=== PATIENT | female | born 1995 | race Caucasian/White ===

== ENCOUNTER 2019-07-24 15:53 | Emergency (ER) | payer OTHER, SELFPAY ==
[2019-07-24 16:01] VITALS: BP 137/69; PULSE 110; RESP 13; TEMP 37.4; O2SAT 100
--- NOTE | 2019-07-24 16:14 | ED.GENADULT ---
HPI - General Adult General Chief complaint: Anxiety Stated complaint: anxiety/n/v/d Time Seen by Provider: 07/24/19 15:58 Source: patient Mode of arrival: ambulatory Limitations: no limitations History of Present Illness HPI narrative: Patient is here because she is been having worsening anxiety over the last 12 hours. She is tearful. She states that she thinks she is having worsening anxiety due to COVID19 news coverage. She states that she has not been helpful she is just extremely anxious. In the past she had been prescribed buspirone but has not been taking it because she did not like the way it made her feel. Patient also states that when she starts to feel this way her IBS ramps up and she has reflux as well. Onset (ago): hour(s) Related Data Home Medications Medication Instructions Recorded Confirmed buspirone mg 07/24/19 Allergies Allergy/AdvReac Type Severity Reaction Status Date / Time No Known Allergies Allergy Mild Verified 04/24/18 12:00 Review of Systems Review of Systems: All systems reviewed & are unremarkable except as noted in HPI and below [facility] Social History Social History (Updated 07/24/19 @ 17:05 by Penelope Maya PA-C) Smoking status: Current every day smoker Alcohol intake: never Substance use type: marijuana Other substance usage details: has medical card Living arrangements: with family Occupation/Education: unemployed Exam Const: Nutritional Appearance: thin Limitations: other limitations (hyperventilating) HENMT: Head: normal to inspection Eyes: Conjunctivae: conjunctivae normal Pupils: Equal, round and reactive pupils present EOM: EOMs intact bilaterally Neck: Neck: no lymphadenopathy Resp: Effort & Inspection: normal respiratory effort Auscultation: clear to auscultation bilaterally Cardio: Rate: regular rate Rhythm: regular rhythm GI: GI Palp: Yes Soft to palpation and Yes Tenderness to palpation present (GI) (mild epigastric tenderness) Back/Spine/Pelvis: Back: no CVA tenderness Skin: General skin exam: normal color Rashes: no rashes Neuro: General: patient oriented x3, moves all extremities and no focal motor deficits Extrem: General: normal to inspection Psych: Appearance: well kempt Affect: Anxious affect present Thought content: Yes Normal thought content present Course Course Emergency Course: Patient discusses her anxiety rationally, she understands that she has letter self be consumed by the news. She had been referred in the past to a therapist but stated that she has not been to see them as yet. She tried to call the office once but became very anxious with primary care physician and did not follow with her. Her IBS and reflux get worse. He has her anxiety gets worse. Recommend that she start to take some Pepcid for her reflux. Also recommend that she does follow through with the therapist she calmed very easily as we talked about the situation in the world today. She would like a primary care physician referral. Vital Signs Vital signs: Vital Signs Temperature 37.4 C 07/24/19 16:01 Pulse Rate 110 H 07/24/19 16:01 Respiratory Rate 13 07/24/19 16:01 Blood Pressure 137/69 07/24/19 16:01 Pulse Oximetry 100 07/24/19 16:01 Temperature 37.4 C 07/24/19 16:01 Pulse Rate 110 H 07/24/19 16:01 Respiratory Rate 13 07/24/19 16:01 Blood Pressure 137/69 07/24/19 16:01 Pulse Oximetry 100 07/24/19 16:01 Medical Decision Making Vital Signs Vital Signs: Vital Signs Temperature 37.4 C 07/24/19 16:01 Pulse Rate 110 H 07/24/19 16:01 Respiratory Rate 13 07/24/19 16:01 Blood Pressure 137/69 07/24/19 16:01 Pulse Oximetry 100 07/24/19 16:01 Temperature 37.4 C 07/24/19 16:01 Pulse Rate 110 H 07/24/19 16:01 Respiratory Rate 13 07/24/19 16:01 Blood Pressure 137/69 07/24/19 16:01 Pulse Oximetry 100 07/24/19 16:01 Discharge Plan Discharge Clinical Impression: A
[2019-07-24 16:23] LABS: Basophils Percent Auto 0.4 % (0.2-1.2); Eosinophils Percent Auto 0.4 % (0-4.4); Hematocrit 38.8 % (37.0-47.0); Immature Granulocyte Absolute 0.02 K/mm3 (0.00-0.031); Immature Granulocyte Percent A 0.4 % (0-0.5); Lymphocytes Absolute Auto 1.38 K/mm3 (0.9-3.2); Lymphocytes Percent Auto 25.3 % (18.3-44.2); Mean Corpuscular HGB Conc 33.5 g/dl (32-36); Mean Corpuscular Hemoglobin 27.1 pg (26-34); Mean Corpuscular Volume 80.8 fl (80-100); Mean Platelet Volume 11.8 fl (7.4-10.4); Monocytes Absolute Auto 0.3 K/mm3 (0.1-0.6); Monocytes Percent Auto 4.8 % (2.6-8.5); Neutrophils Absolute Auto 3.8 K/mm3 (1.3-6.7); Neutrophils Percent Auto 68.7 % (45.5-73.1); Platelet Count Result 252 k/mm3 (150-375); Red Cell Distribution Width 13.2 % (11.5-14.5); White Blood Count 5.5 K/mm3 (4.5-10.0)
[2019-07-24 16:26] VITALS: BP 137/68; PULSE 102; RESP 18; O2SAT 98
[2019-07-24] MEDS: LORAZEPAM 0.5 MG TABLET PO (16:26)
[2019-07-24 16:35] LABS: Blood Urea Nitrogen 6 mg/dL (7-17); Calcium 9.8 mg/dL (8.4-10.2); Carbon Dioxide 16 mmol/L (22-30); Chloride 110 mmol/L (98-107); Estimated CRCL calculation 79 ml/min; Estimated Glomerular Filt Rate > 60; Glucose 97 mg/dL (65-105); Potassium 3.6 mmol/L (3.4-5.0); Sodium 140 mmol/L (137-145)
[2019-07-24 16:43] LABS: Add Urine Microscopic? YES; Appearance Urine Clear (Clear); Bilirubin Urine Negative (Negative); Blood Urine Negative (Negative); Color Urine Straw (Yellow); Glucose Urine UA Negative (Negative); Ketones Urine 2+ mg/dL (Negative); Leukocyte Esterase Ur Negative LEU/UL (Negative); Mucus Urine Rare /lpf; Nitrate Urine Negative (Negative); Protein Urine Negative (Negative); RBC Urine 0-2 /hpf (0-2); Specific Grav Ur 1.012 (1.001-1.035); Squamous Epithelial Cell Urine Many /hpf (Few); Urobilinogen Urine Negative mg/dL (<2.0); WBC Urine 0-3 /hpf
[2019-07-24 17:40] VITALS: BP 114/71; PULSE 85; RESP 16; O2SAT 100
[2019-07-24] MEDS: ONDANSETRON HCL ODT 4 MG TABLET PO (17:41)
== END 2019-07-24 17:41 | disposition home or self-care (01) ==
PROVIDERS: Emergency Provider Emergency Medicine
DX: F41.9 Anxiety disorder, unspecified (principal); K21.9 Gastro-esophageal reflux disease without esophagitis
CPT/HCPCS: 36415; 80048; 81001; 81025; 85025; 99284; A9270

== ENCOUNTER 2019-08-02 05:34 | Emergency (ER) | payer OTHER, SELFPAY ==
[2019-08-02 05:37] VITALS: BP 114/93; PULSE 118; RESP 19; TEMP 37.2; O2SAT 100
[2019-08-02 06:30] VITALS: BP 124/66; PULSE 125; RESP 20; O2SAT 100
--- NOTE | 2019-08-02 06:40 | ED.ANXIETY ---
HPI - Anxiety General Chief Complaint: Anxiety Stated Complaint: panic attack Time Seen by Provider: 08/02/19 06:17 Source: patient Mode of arrival: ambulatory Limitations: no limitations History of Present Illness HPI narrative: Patient is a 23-year-old female who presents to the emergency department with complaint of anxiety and panic attack. Patient reports onset of symptoms a few hours ago and was unable to calm herself at home. Patient was recently started on sertraline for her anxiety few days ago. complaint: anxiety Onset (ago): hour(s) Symptoms: dyspnea (Hyperventilating), chest pain, palpitations and sense of impending doom Quality: constant Place: home History of similar episodes: Yes Provoking factors: emotional stress (Increased fear from coronavirus pandemic) Related Data Home Medications Medication Instructions Recorded Confirmed cetirizine 10 mg PO DAILY 08/02/19 08/02/19 norethindrone-e.estradiol-iron [Lo 1 tablet PO DAILY 08/02/19 08/02/19 Loestrin Fe] omeprazole magnesium [Prilosec OTC] 20 mg PO DAILY 08/02/19 08/02/19 sertraline 50 mg PO HS 08/02/19 08/02/19 Allergies Allergy/AdvReac Type Severity Reaction Status Date / Time buspirone Allergy Unknown Verified 08/02/19 06:09 fluoxetine AdvReac Unknown Verified 08/02/19 06:09 hydroxyzine AdvReac Anxiety Verified 08/02/19 06:09 Review of Systems Review of Systems: All systems reviewed & are unremarkable except as noted in HPI and below Cardiovascular: Cardiovascular: Reports chest pain and Reports rapid heart rate Respiratory: Respiratory: Reports dyspnea Gastrointestinal: Gastrointestinal: Reports nausea PMFSH Past Medical History Medical History (Updated 08/02/19 @ 06:44 by Bri Castillo MD) Anxiety Asthma IBS (irritable bowel syndrome) Social History Social History (Updated 07/24/19 @ 17:05 by Penelope Maya PA-C) Smoking status: Current every day smoker Alcohol intake: never Substance use type: marijuana Other substance usage details: has medical card Gender identity (if verbalized by the patient): Female Exam Const: General: cooperative, no acute distress and alert Nutritional Appearance: well nourished Orientation/consciousness: patient oriented x3 Limitations: no limitations HENMT: Mouth: Yes lip normal and Yes moist mucous membranes Resp: Effort & Inspection: normal respiratory effort Auscultation: clear to auscultation bilaterally Cardio: Rate: tachycardic Rhythm: regular rhythm GI: GI Palp: Yes Soft to palpation and No Tenderness to palpation present (GI) Auscultation: normal bowel sounds Skin: General skin exam: normal color Neuro: General: patient oriented x3 Cognition (Neuro): normal cognition Speech: normal speech Extrem: General: normal to inspection, full ROM and no clubbing, cyanosis or edema Psych: Mental Status: mental status grossly normal Affect: normal affect Attitude: cooperative Course Course Emergency Course: Patient given Ativan for anxiety and Zofran for her nausea. Patient advised on relaxation techniques and ways to manage stress and to continue her current medicine. Patient states she will contact her primary care provider today for further guidance. Vital Signs Vital signs: Vital Signs Temperature 98.9 F 08/02/19 05:37 Pulse Rate 118 H 08/02/19 05:37 Respiratory Rate 19 08/02/19 05:37 Blood Pressure 114/93 H 08/02/19 05:37 Pulse Oximetry 100 08/02/19 05:37 Temperature 98.9 F 08/02/19 05:37 Pulse Rate 118 H 08/02/19 05:37 Respiratory Rate 19 08/02/19 05:37 Blood Pressure 114/93 H 08/02/19 05:37 Pulse Oximetry 100 08/02/19 05:37 Critical Care Time Critical Care Time Critical Care Time: No Discharge Plan Discharge Clinical Impression: Anxiety Patient Disposition: Home, Self-Care Condition: Stable Instructions: Anxiety (ED) Additional Instructions: Continue current medications. Follow-up with
[2019-08-02] MEDS: ONDANSETRON HCL ODT 4 MG TABLET PO (06:46)
[2019-08-02] MEDS: LORAZEPAM 1 MG TABLET PO (06:46)
[2019-08-02 07:00] VITALS: BP 131/83; PULSE 98; RESP 20; O2SAT 100
== END 2019-08-02 07:40 | disposition home or self-care (01) ==
PROVIDERS: Emergency Provider Emergency Medicine
DX: F41.9 Anxiety disorder, unspecified (principal); J45.909 Unspecified asthma, uncomplicated; K58.9 Irritable bowel syndrome, unspecified; F17.200 Nicotine dependence, unspecified, uncomplicated
CPT/HCPCS: 99283; A9270